=== PATIENT | male | born 1960 | race Caucasian/White ===

== ENCOUNTER 2016-11-03 07:48 | Day surgery (SDC) | payer BC ==
[2016-11-02 14:45] LABS: HEMOGLOBIN 15.6 g/dL (13.6-17.8)
[2016-11-02 17:08] LABS: BASOPHILS 0.3 %; BASOPHILS ABSOLUTE 0.02 10/3/uL (0.0-0.16); EOSINOPHILS 4.7 %; EOSINOPHILS ABSOLUTE 0.29 10/3/uL (0.0-0.53); IMMATURE GRANULOCYTES 0.2 %; IMMATURE GRANULOCYTES ABSOLUTE 0.01 10/3/uL (0.0-0.11); LYMPHOCYTES 20.4 %; LYMPHOCYTES ABSOLUTE 1.25 10/3/uL (0.67-4.30); MANUAL DIFF NO %; MEAN CORPUS HGB CONC 35.3 g/dL (32.0-36.0); MEAN CORPUSCULAR HEMOGLOB 33.5 pg (26.0-34.0); MEAN CORPUSCULAR VOLUME 95.1 fL (80-100); MEAN PLATELET VOLUME 11.2 fL (9.2-13.0); MONOCYTES 6.7 %; MONOCYTES ABSOLUTE 0.41 10/3/uL (0.21-1.20); NEUTROPHILS 67.7 %; NEUTROPHILS ABSOLUTE 4.16 10/3/uL (2.02-8.40); PLATELET COUNT 146 10/3/uL (150-400); RBC DISTRIBUTION WIDTH 12.5 % (12.0-16.0); RED CELL COUNT 4.65 10/6/uL (4.7-6.1); WHITE BLOOD CELLS 6.1 10/3/uL (4.5-10.5)
--- NOTE | ~2016-11-03 | OP ---
Record Of Operation [facility] [address] [place]. [address] NAME: DANIELITO HERRING : 64 STATUS : [facility]#: [id number] AGE: 56 ADM/REG DATE : 11/03/16 MR#: [id number] REPORT SERV DATE: 11/05/16 DICTATED BY: ORLANDO WATSON DATE: 11/05/16 REPORT STATUS : Draft TRANSCRIBED BY: MODL DATE: 11/05/16 DATE OF PROCEDURE: 11/03/2016 PREOPERATIVE DIAGNOSIS: 1. Bilateral inguinal hernia. 2. Umbilical hernia. POSTOPERATIVE DIAGNOSIS: 1. Left direct inguinal hernia. 2. Right indirect inguinal hernia. 3. Umbilical hernia. OPERATION PERFORMED: 1. Laparoscopic preperitoneal bilateral inguinal hernia repair. 2. Open primary umbilical hernia repair. SURGEON: Orlando Watson M.D. ANESTHESIA: General. ESTIMATED BLOOD LOSS: Less than 10 mL. IV FLUIDS: Adequate. INDICATION FOR PROCEDURE: Mr. Herring is a 56-year-old gentleman who has developed bilateral inguinal hernias as well as an umbilical hernia. He is requesting repair. Risks and benefits of the procedure were discussed. He has opted for a laparoscopic bilateral inguinal hernia repair and an open umbilical hernia repair. DESCRIPTION OF OPERATION: After appropriate sedation, the patient was prepped and draped in a proper sterile fashion. Skin and subcutaneous tissues around the umbilicus were infiltrated with local anesthesia. A curvilinear incision was made below the umbilicus. Subcutaneous tissues were incised down to the anterior rectus fascia. Anterior rectus fascia was incised in a transverse fashion. The rectus muscle was elevated. We placed a dissecting balloon into the preperitoneal space and insufflated. This balloon was removed and placed a structural balloon into the preperitoneal space and insufflated. We then placed two lower midline 5-mm trocars under direct visualization after obtaining local anesthesia in a standard fashion. We began on the right, we were able to visualize the Tan's ligament in the epigastric vessels as well as the pubic symphysis. There was no evidence of a direct inguinal hernia. We dissected out the spermatic cord. There was a large cord lipoma entering the dilated internal ring. This was dissected out fully. We then placed a piece of Bard 3DMax mesh into the preperitoneal space. It was fashioned around the spermatic cord with a slit cut on the inferior aspect. It was secured to Tan's ligament using a secure strap. We placed another tack superiorly medially. A fourth tack was placed superiorly and laterally. This gave us good coverage of the internal ring as well as Hesselbach's triangle. Record Of Operation [facility] [address] [facility] [place] [address] NAME: DANIELITO HERRING : 64 STATUS : [facility] PAT#: [id number] AGE: 56 ADM/REG DATE : 11/03/16 MR#: [id number] REPORT SERV DATE: 11/05/16 DICTATED BY: ORLANDO WATSON DATE: 11/05/16 REPORT STATUS : Draft TRANSCRIBED BY: EMANUEL DATE: 11/05/16 We then turned our attention towards the left side. Once again, we were able to visualize the epigastric vessels. There was a direct inguinal hernia which was relatively large. It was fully reduced. We were able to visualize the pubic symphysis. We dissected out the spermatic cord. There was no evidence of an indirect hernia. The internal ring did not appear to be dilated. We placed a piece of Bard 3DMax mesh on the left side. It was fashioned around the spermatic cord. It was secured to Tan's ligament using secure strap. We placed another tack superiorly and medially and a fourth tack superior and laterally. At this point, we were satisfied with our both repairs. We instilled 20 mL Marcaine into the preperitoneal space. Preperitoneal space was then desufflated. We removed our trocars. We closed the anterior rectus fascia using 0 Vicryl suture. We then turned our attention towards the umbilical hernia repair. The umbilical skin was dissected off. The umbilical skin was dissected off the hernia sac. The hernia sac was reduced. He had a 1.5 cm umbilical hernia that I felt like we could primarily repair. This was repaired using interrupted 0 Nurolon sutures in a transverse fashion. The fascia came together nicely. The back of the skin was approximated using interrupted 3-0 Vicryl suture. The back of the skin was tacked to the fascia using interrupted 3-0 Vicryl suture. The skin was closed using 0 Vicryl suture. Dressings were then placed. The patient was taken to the recovery room in satisfactory condition. HILARIO/EMANUEL Orlando Watson M.D. / [id number] CC: April Andrade M.D.
[~2016-11-03 07:48] MED LIST: FISH-EPA1000 MG PO; MOBIC15 MG PO; VITAMIN B PO; VITAMIN D1000 UNI1 PO
== END 2016-11-03 17:46 | disposition home or self-care (01) ==
LOC: SDC 07:48
PROVIDERS: Specialist
PROC: 0YQA4ZZ Repair Bilateral Inguinal Region, Percutaneous Endoscopic Approach (ICD-10-PCS; principal; 2016-11-03 09:00)
PROC: 0WQF0ZZ Repair Abdominal Wall, Open Approach (ICD-10-PCS; 2016-11-03 09:00)
DX: K40.20 Bilateral inguinal hernia, without obstruction or gangrene, not specified as recurrent (principal); K42.9 Umbilical hernia without obstruction or gangrene; K21.9 Gastro-esophageal reflux disease without esophagitis; J40 Bronchitis, not specified as acute or chronic; Z90.49 Acquired absence of other specified parts of digestive tract; Z98.890 Other specified postprocedural states; Z87.891 Personal history of nicotine dependence; Z79.899 Other long term (current) drug therapy
CPT/HCPCS: 36415; 85025; 87641; 93005; A9270-GY; C1713; C1726; C1727; C1781; J0690; J1170; J2250; J2405; J2710; J3010